=== PATIENT | male | born 1995 | race Two or more races ===

== ENCOUNTER 2025-05-10 22:15 | Emergency (ER) | payer MEDICAID, OTHER ==
[~2025-05-10] VITALS: Ht 170.2 cm; Wt 89.0 kg
[2025-05-10] MEDS ORDERED: METH4PAK PO (23:35)
[2025-05-10] MEDS ORDERED: LORA-622 PO (23:35)
[2025-05-10] MEDS ORDERED: AZIT500T66 PO (23:35)
--- NOTE | 2025-05-10 23:38 | ED.PDOC ---
Eye-HPI HPI Comments Pt presents with cc of throat pain and difficulty swallowing. Pt states he has been seen twice in the past 1 month and finished two different courses of antibiotics for the same symptoms without any improvemen Chief Complaint: Sore Throat Time Seen by MD: 22:18 Primary Care Provider: UNKNOWN Reviewed Notes: Nurses Notes, Medications, Allergies Allergies: Uncoded Allergies: NO K (Allergy, Unknown, 05/10/25) Information Source: Patient Mode of Arrival: Ambulatory Past Medical History PAST MEDICAL HISTORY: Denies Surgical History: Denies all surgeries Family History Family History: Unknown Social History Smoker: Non-Smoker Alcohol: Denies ETOH Use Drugs: Denies Drug Use Lives In: Home All Other Systems: Reviewed and Negative (see hpi) Physical Exam General Appearance: No Apparent Distress, Normal HEENT: Pharyngeal Erythema, TMs Normal, Other (Tonsils grade 5 erythemic without exudate) Neck: Full Range of Motion, Non-Tender Respiratory: Lungs Clear, No Respiratory Distress, Normal Breath Sounds Cardiovascular: No Edema, No JVD, No Murmur, No Gallop, Normal Peripheral Pulses, Regular Rate/Rhythm Breast Exam: Deferred Gastrointestinal: Non Tender, Soft Genitalia: Deferred Pelvic: Deferred Rectal: Deferred Extremities: Normal capillary refill, Normal range of motion Musculoskeletal : Apperance: Normal Neurologic: Alert, No Motor Deficits, Normal Affect, Normal Mood, No Sensory Deficits Cerebellar Function: Normal Reflexes: NOT DONE Skin: Dry, Normal Color, Warm Lymphatic: No Adenopathy Was a procedure done? Was a procedure done?: No EENT DIFF Eye: N/A Ear: Otitis Media, Perforation, Dental, Pharyngitis X-Ray, Labs, Meds, VS Vital Signs Date Time Temp Pulse Resp B/P (MAP) Pulse Ox O2 Delivery O2 Flow Rate FiO2 05/10/25 22:17 98.1 114 18 148/68 95 98.1 X-Ray, Labs, Meds, VS Comment PCP for referral to ENT for chronic tonsillitis. Script trial of antibiotics and steroid and allergy medicine advised take medication as prescribed side effects discussed. ER return precautions given patient indicates understanding agrees with discharge plan of care. Time of 1ST Reevaluation: 22:18 Reevaluation 1ST: Unchanged Time of 2ND Reevaluation: 23:36 Reevaluation 2ND: Improved Patient Education/Counseling: Diagnosis, Treatment, Need For Follow Up Family Education/Counseling: No Family Present SEPSIS Sepsis Screen Date sepsis recognized/suspect: May 10, 2025 Time Sepsis recognized/suspect: 2218 Recent Procedure: No On Antibiotic Therapy: No Respiratory Rate >20: No Heart Rate >90: Yes Temp<36 C (96.8 F) or >38.3 C: No SBP <90 or MAP <65 mmHG: No New Acute Mental Status Change: No Is the patient on CPAP, BIPAP,: No Vital Signs Date Time Temp Pulse Resp B/P (MAP) Pulse Ox O2 Delivery O2 Flow Rate FiO2 05/10/25 22:17 98.1 114 18 148/68 95 98.1 Departure 1 Departure Time of Disposition: 23:33 Impression: Primary Impression: Acute tonsillitis Disposition: HOME / SELF CARE / HOMELESS Condition: Stable e-Prescriptions Loratadine (Claritin) 10 Mg Tab 1 TAB PO HS for 14 Days, #14 TAB Prov: CHRISTOPHER HUBBARD 05/10/25 Methylprednisolone (Medrol Dosepak) 4 Mg Long 4 MG PO UD for 6 Days, #21 TAB UAD Prov: CHRISTOPHER HUBBARD 05/10/25 Azithromycin (Azithromycin) 500 Mg Tab 1 TAB PO DAILY for 5 Days, #5 TAB Prov: CHRISTOPHER HUBBARD 05/10/25 Discharged With: Self Critical Care Note Critical Care Time?: No Stability Stability form required: CHRISTOPHER [place] May 10, 2025 23:37
[2025-05-10 23:51] VITALS: BP 125/87; PULSE 97; RESP 18; TEMP 98.3; O2SAT 95
[2025-05-10] MEDS: AZITHROMYCIN 250 MG TAB PO ONE (23:51)
== END 2025-05-10 23:51 | disposition home or self-care (01) ==
LOC: ER 22:15
DX: J03.90 Acute tonsillitis, unspecified (principal)
CPT/HCPCS: 96372; 99283; J1100

== ENCOUNTER 2025-05-12 19:00 | Emergency (ER) | payer MEDICAID ==
[~2025-05-12] VITALS: Ht 172.7 cm; Wt 89.4 kg
[~2025-05-12 19:00] MED LIST: AZIT500T66 PO; LORA-622 PO; METH4PAK PO
--- NOTE | 2025-05-12 20:59 | ED.PDOC ---
Eye-HPI HPI Comments This is a 29 year-old male who presents to the ED for neck pain as of X1 day. Patient reports associated sensation of "lumps" in the neck. Patient has no further complaints at this time and otherwise denies symptoms of fever, chills, weakness, or fatigue. Chief Complaint: Neck Pain Time Seen by MD: 20:46 Reviewed Notes: Nurses Notes, Medications, Allergies Allergies: Coded Allergies: NO KNOWN ALLERGIES (Unverified , 05/12/25) Home Meds Active Scripts Loratadine (Claritin) 10 Mg Tab, 1 TAB PO HS for 14 Days, #14 TAB Prov:CHRISTOPHER HUBBARD [facility] 05/10/25 Discontinued Scripts Methylprednisolone (Medrol Dosepak) 4 Mg Long, 4 MG PO UD for 6 Days, #21 TAB UAD Prov:CHRISTOPHER HUBBARD [facility] 05/10/25 Azithromycin (Azithromycin) 500 Mg Tab, 1 TAB PO DAILY for 5 Days, #5 TAB Prov:CHRISTOPHER HUBBARD [facility] 05/10/25 Information Source: Patient Mode of Arrival: Ambulatory Timing: Days Duration: Since onset Past Medical History PAST MEDICAL HISTORY: Denies Surgical History: Denies all surgeries Family History Family History: Reviewed,noncontributory to illness, No family hx of Cancer, No family hx of DM, No family hx of Heart amairani, No family hx of HTN, No family hx ofKidney amairani, No family hx of Liver amairani, No family hx of Lung amairani, No family hx of Stroke Social History Smoker: Non-Smoker Alcohol: Denies ETOH Use Drugs: Denies Drug Use Lives In: Home Constitutional: denies: chills, diaphoresis, fatigue, fever, malaise, sweats, weakness, others EENTM: reports: others (throat pain ); denies: blurred vision, double vision, ear bleeding, ear discharge, ear drainage, ear pain, ear ringing, eye pain, eye redness, hearing loss, mouth pain, mouth swelling, nasal discharge, nose bleeding, nose congestion, nose pain, photophobia, tearing, throat pain, throat swelling, voice changes Respiratory: denies: cough, hemoptysis, orthopnea, SOB at rest, shortness of breath, SOB with excertion, stridor, wheezing, others Cardiovascular: denies: chest pain, dizzy spells, diaphoresis, Dyspnea on exertion, edema, irregular heart beat, left arm pain, lightheadedness, palpitations, PND, syncope, others Gastrointestinal: denies: abdomen distended, abdominal pain, blood streaked bowels, constipated, diarrhea, dysphagia, difficulty swallowing, hematemesis, melena, nausea, poor appetite, poor fluid intake, rectal bleeding, rectal pain, vomiting, others Genitourinary: denies: burning, dysuria, flank pain, frequency, hematuria, incontinence, penile discharge, penile sore, pain, testicle pain, testicle swelling, urgency, others Neurological: denies: dizziness, fainting, headache, left sided numbness, left sided weakness, numbness, paresthesia, pre-existing deficit, right sided nu mbness, right sided weakness, seizure, speech problems, tingling, tremors, weakness, others Musculoskeletal: denies: back pain, gout, joint pain, joint swelling, muscle pain, muscle stiffness, neck pain, others Integumetry: denies: bruises, change in color, change in hair/nails, dryness, laceration, lesions, lumps, rash, wounds, others Allergic/Immunocompromised: denies: Difficulty Healing, Frequent Infections, Hives, Itching, others Hematologic/Lymphatic: denies: anemia, blood clots, easy bleeding, easy bruising, swollen glands, others Endocrine: denies: excessive hunger, excessive sweating, excessive thirst, excessive urination, flushing, intolerance to cold, intolerance to heat, unexplained weight gain, unexplained weight loss, others Psychiatric: denies: anxiety, bipolar disorder, depression, hopeless, panic disorder, schizophrenia, sleepless, suicidal, others All Other Systems: Reviewed and Negative Physical Exam General Appearance: No Apparent Distress, Normal HEENT: Normal ENT Inspection, Pharynx Normal, TMs Normal Neck: Full Range of Motion, Tender Lateral Respiratory: Lungs Clear, No Respiratory Distress, Normal Breath Sounds Cardiovascular: No Edema, No JVD, No Murmur, No Gallop, Normal Peripheral Pulses, Regular Rate/Rhythm Breast Exam: Deferred Gastrointestinal: No Organomegaly, Non Tender, No Pulsatile Mass, Normal Bowel Sounds, Soft Genitalia: Deferred Pelvic: Deferred Rectal: Deferred Extremities: Normal capillary refill, Normal range of motion, Non-tender Musculoskeletal : Apperance: Normal Neurologic: Alert, No Motor Deficits, Normal Affect, Normal Mood, No Sensory Deficits Cerebellar Function: Normal Reflexes: NOT DONE Skin: Dry, Normal Color, Warm Lymphatic: Cervical Adenopathy (L), Cervical Adenopathy (R), No Adenopathy Was a procedure done? Was a procedure done?: No EENT DIFF Eye: N/A Ear: N/A Nose: N/A Mouth: N/A Sore Throat: Other (throat pain ) X-Ray, Labs, Meds, VS Vital Signs Date Time Temp Pulse Resp B/P (MAP) Pulse Ox O2 Delivery O2 Flow Rate FiO2 05/12/25 22:12 98.6 87 18 136/90 (105) 97 98.6 05/12/25 20:55 97.8 100 16 145/95 (112) 97 97.8 05/12/25 20:55 Room Air* 0 21 05/12/25 19:01 97.8 101 16 151/98 96 97.8 X-Ray, Labs, Meds, VS Comment CT neck soft tissue shows enlargement of cervical lymph nodes. Patient was seen here recently by this provider and prescribed antibiotics advised to continue the antibiotics as prescribed. Advised to rest increase p.o. fluids with electrolytes. Avoid under water activities while with infection. Follow up with your PCP in three days if no improvement. ER return precautions given patient indicates understanding and agrees with discharge plan of care. Images Reviewed?: Images reviewed and evaluated by me Time of 1ST Reevaluation: 21:25 Reevaluation 1ST: Unchanged Reevaluation 2ND: Improved Patient Education/Counseling: Diagnosis, Treatment Family Education/Counseling: No Family Present SEPSIS Sepsis Screen Date sepsis recognized/suspect: May 12, 2025 Time Sepsis recognized/suspect: 1900 Recent Procedure: No On Antibiotic Therapy: No Respiratory Rate >20: No Heart Rate >90: No Temp<36 C (96.8 F) or >38.3 C: No SBP <90 or MAP <65 mmHG: No New Acute Mental Status Change: No Is the patient on CPAP, BIPAP,: No Physician Orders Neck Without Contrast (05/12/25 20:55) Vital Signs Date Time Temp Pulse Resp B/P (MAP) Pulse Ox O2 Delivery O2 Flow Rate FiO2 05/12/25 22:12 98.6 87 18 136/90 (105) 97 98.6 05/12/25 20:55 97.8 100 16 145/95 (112) 97 97.8 05/12/25 20:55 Room Air* 0 21 05/12/25 19:01 97.8 101 16 151/98 96 97.8 Departure 1 Departure Time of Disposition: 22:13 Impression: Primary Impression: Cervical adenopathy Disposition: 01 HOME / SELF CARE / HOMELESS Condition: Stable Discharged With: Self Critical Care Note Critical Care Time?: No Stability Stability form required: No Heart Score Heart Score: Heart Score Response (Comments) Value History N/A 0 EKG N/A 0 Age N/A 0 Risk Factors N/A 0 Troponin N/A 0 Total 0 I personally scribed for ER ([email or web address]) on 05/12/25 at 20:59. Electronically submitted by [facility]u [facility]). ER May 12, 2025 20:59 CHRISTOPHER HUBBARD [employer] May 12, 2025 22:14
--- NOTE | 2025-05-12 21:43 | DVH ---
Procedure: CT NECK WITHOUT CONTRAST Study Date and Requested Time: 05/12/2025 08:59 PM History: Neck swelling Comparison: None Dose: CTDI: 20.92 mGy DLP: 717.7 mGycm Technique: Multiplanar images obtained through the neck without contrast Findings: Nasopharynx, oropharynx, hypopharynx, and larynx normal in caliber without evidence of focal mass. Parotid, submandibular, and sublingual glands within normal limits. Tongue within normal limits. Slightly prominent cervical level 2 and 3 lymph nodes which are most likely reactive. Thyroid gland within normal limits. No evidence of superior mediastinal lymphadenopathy. Musculoskeletal structures grossly unremarkable with no evidence of acute osseous abnormality. The lung apices are clear. Impression: Slightly prominent cervical lymph nodes which are most likely reactive. Otherwise, No evidence of significant abnormality involving the cervical soft tissues or surrounding structures.
[2025-05-12 22:12] VITALS: BP 136/90; PULSE 87; RESP 18; TEMP 98.6; O2SAT 97
== END 2025-05-12 22:35 | disposition home or self-care (01) ==
LOC: ER 19:00
DX: R59.9 Enlarged lymph nodes, unspecified (principal); Z79.899 Other long term (current) drug therapy
CPT/HCPCS: 70490